=== PATIENT | male | born 1945 | race Caucasian/White ===

== ENCOUNTER 2016-10-05 08:33 | Emergency (ER) | payer MEDICARE ==
[~2016-10-05] VITALS: Ht 182.9 cm; Wt 88.0 kg
[2016-10-05] MEDS ORDERED: MULTCAP11 PO (08:44)
[2016-10-05] MEDS ORDERED: FISH1000 PO (08:44)
[2016-10-05 10:28] VITALS: BP 146/83
== END 2016-10-05 10:48 | disposition home or self-care (01) ==
LOC: M ED 08:33
DX: K20.8 Other esophagitis (principal)

== ENCOUNTER 2016-11-24 13:54 | Emergency (ER) | payer MEDICARE ==
[~2016-11-24] VITALS: Ht 182.9 cm; Wt 84.1 kg
[~2016-11-24 13:54] MED LIST: FISH1000 PO; MULTCAP11 PO
[2016-11-24] MEDS ORDERED: LIDOCAINE 1% MDV 20ML VIAL IM ONE (16:00)
[2016-11-24] MEDS ORDERED: ADACEL/BOOSTRIX VACCINE (DIPHTH/PERTUSS/ACELL/TETANUS)0.5ML SYR (90715) IM ONE (16:00)
[2016-11-24] MEDS ORDERED: CEPHALEXIN 500 MG CAP PO ONE (16:15)
--- NOTE | 2016-11-24 16:45 | REP ---
LEFT HAND SERIES: Four views of the left hand are performed. There are tiny chip fractures of the distal end of the 4th middle phalanx medially. There appears to adjacent soft tissue injury as well. I see no other evidence of acute fracture or dislocation. Signed by Brandon Treadwell MD 11/27/2016 09:54 A
[2016-11-24] MEDS ORDERED: ACET30TAB PO (17:00)
[2016-11-24] MEDS ORDERED: KEFL500C17 PO (17:00)
[2016-11-24 17:38] VITALS: BP 148/88
== END 2016-11-24 17:39 | disposition home or self-care (01) ==
LOC: M ED 13:54
DX: S61.215A Laceration without foreign body of left ring finger without damage to nail, initial encounter (principal); S62.631A Displaced fracture of distal phalanx of left index finger, initial encounter for closed fracture; W28.XXXA Contact with powered lawn mower, initial encounter; Y92.017 Garden or yard in single-family (private) house as the place of occurrence of the external cause; Y93.H2 Activity, gardening and landscaping; Y99.9 Unspecified external cause status; Z23 Encounter for immunization

== ENCOUNTER 2017-01-01 11:11 | Emergency (ER) | payer MEDICARE ==
[~2017-01-01] VITALS: Ht 182.9 cm; Wt 84.1 kg
[~2017-01-01 11:11] MED LIST changes: +ACET30TAB PO; +KEFL500C17 PO
--- NOTE | 2017-01-01 13:22 | REP ---
Clinical: Foreign body sensation. Technique: AP and lateral soft tissue neck radiographs. Findings: The visualized airway and prevertebral soft tissues are normal. There is no evidence for soft tissue swelling, subcutaneous emphysema, or radiodense foreign body. 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 Impression: No prevertebral soft tissue swelling or foreign body. Signed by Fernando Fan MD 01/01/2017 01:14 P
[2017-01-01] MEDS ORDERED: CLOT10TR MT (13:25)
[2017-01-01 13:38] VITALS: BP 135/85
== END 2017-01-01 13:38 | disposition home or self-care (01) ==
LOC: M ED 11:11
DX: R09.89 Other specified symptoms and signs involving the circulatory and respiratory systems (principal); B37.9 Candidiasis, unspecified; M50.30 Other cervical disc degeneration, unspecified cervical region; Z87.891 Personal history of nicotine dependence

== ENCOUNTER 2017-08-16 09:16 | Emergency (ER) | payer MEDICARE | END 2017-08-16 10:22 | disposition home or self-care (01) | LOC: M ED 09:16 | DX: S61.411A Laceration without foreign body of right hand, initial encounter (principal); W22.8XXA Striking against or struck by other objects, initial encounter; Y92.098 Other place in other non-institutional residence as the place of occurrence of the external cause; Z79.82 Long term (current) use of aspirin | CPT/HCPCS: 99283 ==

== ENCOUNTER → 2022-04-21 | Outpatient (CLI) | payer MEDICARE ==
[~2022-04-21] MED LIST changes: +ACET-716 PO; -ACET30TAB PO; +ASPI81TA26 PO; +CLOT10TR MT; +E-Z-GAS II EFFERVESCENT PACKET (SODIUM BICARB./CITRIC ACID/SIMETHICONE) As Ordered ONE; +E-Z-HD 98% w/w 340GM SUSP BTL As Ordered ONE; +E-Z-PAQUE 96% w/w SUSP 176GM BTL As Ordered ONE; +MULTCAP PO; +VITA500C14 PO
== END ==
LOC: M RAD 08:22
PROVIDERS: ATTEND Internal Medicine
DX: R13.10 Dysphagia, unspecified (principal)

== ENCOUNTER → 2023-12-21 | Outpatient (REF) | payer MEDICARE ==
[~2023-12-21] MED LIST changes: -E-Z-GAS II EFFERVESCENT PACKET (SODIUM BICARB./CITRIC ACID/SIMETHICONE) As Ordered ONE; -E-Z-HD 98% w/w 340GM SUSP BTL As Ordered ONE; -E-Z-PAQUE 96% w/w SUSP 176GM BTL As Ordered ONE
== END ==
LOC: M LAB REF 12:35
PROVIDERS: ATTEND Internal Medicine
DX: G45.3 Amaurosis fugax (principal)

== ENCOUNTER → 2024-01-11 | Outpatient (CLI) | payer MEDICARE | LOC: M CARPUL 10:58 | PROVIDERS: ATTEND Internal Medicine | DX: I49.1 Atrial premature depolarization (principal); I08.8 Other rheumatic multiple valve diseases; I35.0 Nonrheumatic aortic (valve) stenosis ==

== ENCOUNTER → 2024-02-01 | Outpatient (CLI) | payer MEDICARE | LOC: M PLAIMG 13:27 → M PLALAB 13:27 | PROVIDERS: ATTEND Internal Medicine | DX: I49.1 Atrial premature depolarization (principal) ==

== ENCOUNTER → 2024-02-01 | Outpatient (CLI) | payer MEDICARE | LOC: M RAD 12:49 | PROVIDERS: ATTEND Ophthalmology | DX: G45.3 Amaurosis fugax (principal); I49.1 Atrial premature depolarization ==

== ENCOUNTER → 2024-02-15 | Outpatient (CLI) | payer MEDICARE | LOC: M LAB 16:00 | PROVIDERS: ATTEND Physician Assistant | DX: I65.23 Occlusion and stenosis of bilateral carotid arteries (principal) ==

== ENCOUNTER → 2024-02-19 | Outpatient (CLI) | payer MEDICARE ==
[~2024-02-19] MED LIST changes: +ISOVUE-370 76% 100ML VIAL As Ordered ONE
== END ==
LOC: M RAD 06:48
PROVIDERS: ATTEND Surgery Vascular Surgery
DX: I65.23 Occlusion and stenosis of bilateral carotid arteries (principal)
CPT/HCPCS: 70496; 70498; Q9967

== ENCOUNTER → 2024-03-14 | Outpatient (CLI) | payer MEDICARE ==
[~2024-03-14] MED LIST changes: -ISOVUE-370 76% 100ML VIAL As Ordered ONE
[2024-03-14 11:07] LABS: BASO % 0.7 % (0.0-1.0); EOS # 0.1 10^3/uL (0.0-0.5); EOS % 2.4 % (0.0-3.0); HEMATOCRIT 41.7 % (42.0-52.0); LYMPH # 1.4 10^3/uL (1.5-5.0); LYMPH % 26.2 % (24.0-44.0); MEAN CORPUSCULAR HEMOGLOBIN 30.2 pg (27.0-33.0); MEAN CORPUSCULAR HGB CONC 33.6 g/dl (32.0-36.5); MEAN CORPUSCULAR VOLUME 89.9 fl (80.0-96.0); MONO # 0.5 10^3/uL (0.0-0.8); MONO % 9.2 % (2.0-8.0); NEUTROPHILS # 3.3 10^3/uL (1.5-8.5); NEUTROPHILS % 61.1 % (36.0-66.0); PLATELET COUNT, AUTOMATED 289 10^3/uL (150-450); RED BLOOD COUNT 4.64 10^6/uL (4.30-6.10); WHITE BLOOD COUNT 5.5 10^3/uL (4.0-10.0)
[2024-03-14 11:45] LABS: ALBUMIN 3.7 G/DL (3.2-5.2); ALKALINE PHOSPHATASE 70 U/L (40-129); ALT/SGPT 17 U/L (7.0-40); AST/SGOT 14 U/L (<34); BILIRUBIN,TOTAL 0.6 MG/DL (0.3-1.2); BLOOD UREA NITROGEN 18 MG/DL (9-23); CALCIUM LEVEL 9.4 MG/DL (8.3-10.6); CARBON DIOXIDE LEVEL 27 MMOL/L (20-31); CHLORIDE LEVEL 109 MMOL/L (98-107); CHOLESTEROL LEVEL 146 MG/DL (<200); CHOLESTEROL RISK RATIO 2.78 (<5); CREATININE FOR GFR 0.93 MG/DL (0.70-1.30); GLOMERULAR FILTRATION RATE > 60.0 (>42); GLUCOSE, FASTING 94 MG/DL (74-106); HDL CHOLESTEROL 52.5 MG/DL (>40); LDL CHOLESTEROL 72.1 MG/DL (<100); MAGNESIUM LEVEL 2.1 MG/DL (1.8-2.4); NON-HDL-C 93.5 MG/DL; POTASSIUM SERUM 4.4 MMOL/L (3.5-5.1); SODIUM LEVEL 144 MMOL/L (136-145); TOTAL PROTEIN 6.7 G/DL (5.7-8.2); TRIGLYCERIDES LEVEL 107 MG/DL (<150)
[2024-03-14 12:10] LABS: HEMOGLOBIN A1c 5.3 % (4.0-6.0)
== END ==
LOC: M LAB 10:33
PROVIDERS: ATTEND Internal Medicine Cardiovascular Disease
DX: E78.2 Mixed hyperlipidemia (principal); Z01.810 Encounter for preprocedural cardiovascular examination; I65.29 Occlusion and stenosis of unspecified carotid artery; I27.0 Primary pulmonary hypertension; I11.0 Hypertensive heart disease with heart failure; Z13.1 Encounter for screening for diabetes mellitus; I50.9 Heart failure, unspecified

== ENCOUNTER → 2025-01-02 | Outpatient (CLI) | payer MEDICARE ==
[~2025-01-02] MED LIST changes: -CLOT10TR MT; +CLOT10TR11 MT
[2025-01-02 13:41] LABS: ALT/SGPT 21.0 U/L (7.0-40); AST/SGOT 24.0 U/L (<34); CALCIUM LEVEL 9.2 MG/DL (8.3-10.6); CARBON DIOXIDE LEVEL 28.0 MMOL/L (20-31); CHLORIDE LEVEL 107.0 MMOL/L (98-107); CHOLESTEROL LEVEL 138.0 MG/DL (<200); CHOLESTEROL RISK RATIO 2.53 (<5); CREATININE FOR GFR 1.02 MG/DL (0.70-1.30); GLOMERULAR FILTRATION RATE 74.3 (>35); LDL CHOLESTEROL 68.8 MG/DL (<100); MAGNESIUM LEVEL 2.1 MG/DL (1.8-2.4); NON-HDL-C 83.6 MG/DL; POTASSIUM SERUM 5.1 MMOL/L (3.5-5.1); SODIUM LEVEL 145.0 MMOL/L (136-145); TRIGLYCERIDES LEVEL 74.0 MG/DL (<150)
[2025-01-03 06:02] LABS: LDL DIRECT 73 mg/dL (<100)
== END ==
LOC: M LAB 12:04
PROVIDERS: ATTEND Internal Medicine Cardiovascular Disease
DX: E78.2 Mixed hyperlipidemia (principal); I27.0 Primary pulmonary hypertension; I47.19 Other supraventricular tachycardia